=== PATIENT | female | born 1995 | race Caucasian/White ===

== ENCOUNTER 2023-11-08 16:14 | Emergency (ER) | payer OTHER ==
[~2023-11-08] VITALS: Ht 152.4 cm; Wt 61.2 kg
[2023-11-08] MEDS ORDERED: Cephalexin500 MG PO (16:31)
== END 2023-11-08 16:40 | disposition home or self-care (01) ==
LOC: ER 16:14
DX: L30.9 Dermatitis, unspecified (principal)
CPT/HCPCS: 99282

== ENCOUNTER 2023-11-13 22:00 | Emergency (ER) | payer OTHER ==
[~2023-11-13] VITALS: Ht 152.4 cm; Wt 61.2 kg
[~2023-11-13 22:00] MED LIST: Cephalexin500 MG PO
[2023-11-13] MEDS ORDERED: Mupirocin 2% Ointment 22 GM TOP ONE (22:25)
[2023-11-13] MEDS ORDERED: MUPIROCIN1 G1 TOP (22:29)
== END 2023-11-13 22:53 | disposition home or self-care (01) ==
LOC: ER 22:00
DX: L01.00 Impetigo, unspecified (principal); Z79.899 Other long term (current) drug therapy
CPT/HCPCS: 99283; A9270

== ENCOUNTER → 2024-01-10 | Outpatient (CLI) | payer OTHER ==
[~2024-01-10] MED LIST changes: +MUPIROCIN1 G1 TOP
== END | disposition home or self-care (01) ==
LOC: LAB SHORT 16:07 → LAB 16:07
PROVIDERS: Student in an Organized Health Care Education/Training Program
DX: Z01.419 Encounter for gynecological examination (general) (routine) without abnormal findings (principal)
CPT/HCPCS: G0123